=== PATIENT | male | born 1950 | race Caucasian/White ===

== ENCOUNTER 2016-11-09 09:14 | Day surgery (SDC) | payer MEDICARE, BC ==
--- NOTE | ~2016-11-09 | EGD ---
EGD REPORT [facility] [address] [place] [address] NAME: WAQAS DIETZ : [birth year] STATUS : REG [facility]#: [id number] AGE: 66 ADM/REG DATE : 11/09/16 MR#: [id number] REPORT SERV DATE: 11/09/16 DICTATED BY: MARGE MELENDEZ DATE: 11/09/16 REPORT STATUS : Draft [facility]ANS[facility]IB[facility] BY: [facility] DATE: 11/09/16 [facility] Patient Name: Waqas Dietz Date of : 1950 Attending MD: MARGE MELENDEZ MD Procedure Date No Time: 11/09/2016 Procedure: Colonoscopy Indications: High risk colon cancer surveillance: Personal history of colonic polyps Referring MD: CRISTI ESTRADA Medicines: Monitored Anesthesia Care Complications: No immediate complications. Procedure: Pre-Anesthesia Assessment: - ASA Grade Assessment: III - A patient with severe systemic disease. After I obtained informed consent, the scope was passed under direct vision. Throughout the procedure, the patient's blood pressure, pulse, and oxygen saturations were monitored continuously. The CF [id number] was introduced through the anus and advanced to the terminal ileum, with identification of the appendiceal orifice and IC valve. The colonoscopy was performed with moderate difficulty due to significant looping. Successful completion of the procedure was aided by applying abdominal pressure. The patient tolerated the procedure well. The quality of the bowel preparation was good. Findings: The digital rectal exam was normal. Pertinent negatives include no palpable rectal lesions. The terminal ileum appeared normal. A few diverticula were found in the sigmoid colon. A sessile polyp was found in the cecum. The polyp was 5 mm in size. The polyp was removed with a cold biopsy forceps. Resection and retrieval were complete. Hemorrhoids were found during retroflexion and were mild. Impression: - The examined portion of the ileum was normal. - Diverticulosis in the sigmoid colon. - One 5 mm polyp in the cecum. Resected and retrieved. - Hemorrhoids. Recommendation: - Patient has a contact number available for emergencies. The signs and symptoms of potential delayed EGD REPORT [address] [place]. [address] NAME: WAQAS DIETZ : [birth year] STATUS : REG [facility] PAT#: [id number] AGE: 66 ADM/REG DATE : 11/09/16 MR#: [id number] REPORT SERV DATE: 11/09/16 DICTATED BY: MARGE MELENDEZ DATE: 11/09/16 REPORT STATUS : Draft TRANSCRIBED BY: [employer] DATE: 11/09/16 complications were discussed with the patient. Return to normal activities tomorrow. Written discharge instructions were provided to the patient. - Regular diet. - Continue present medications. - Resume Coumadin (warfarin) today and Lovenox (enoxaparin) today at prior doses. - Repeat colonoscopy in 5 years for surveillance. We will need to check PT/INR in 3 days. Procedure Code(s): --- Professional --- 20430, Colonoscopy, flexible, proximal to splenic flexure; with biopsy, single or multiple Diagnosis Code(s): --- Professional --- K64.9, Unspecified hemorrhoids K57.30, Diverticulosis of large intestine without perforation or abscess without bleeding D12.0, Benign neoplasm of cecum Z86.010, Personal history of colonic polyps CPT copyright 2013 [employer]. All rights reserved. The codes documented in this report are preliminary and upon men's garment fitter review may be revised to meet current compliance requirements. MARGE MELENDEZ MD 11/09/2016 11:12 AM This report has been signed electronically. Number of Addenda: 0 Note Initiated On: 11/09/2016 10:35 AM Scope Withdrawal Time 0 hours 11 minutes 6 seconds [id number] [id number]
[~2016-11-09 09:14] MED LIST: BENICAR20 PO; BIOTIN PO; COQ-10200 MG OR; CRESTOR20 MG PO; FENOGLIDE120 MG PO; FISH OIL1200 MG PO; FISH-EPA1000 MG PO; JANTOVEN1 MG PO; JANTOVEN2 MG PO; JANTOVEN3 MG PO; LOVENOX; LOVENOX SC; MOTRIN IB200 MG PO; Multivit/Min Tab PO; PRAVACHOL40 MG PO; SULAR8.5 MG PO; TRICOR PO; ULORIC40 MG PO
[2017-02-23] MEDS ORDERED: ULORIC40 MG PO (15:17)
[2017-02-23] MEDS ORDERED: JANTOVEN2 MG PO (15:17)
[2017-02-23] MEDS ORDERED: TRILIPIX45 MG PO (15:17)
[2017-02-23] MEDS ORDERED: FISH-EPA1000 MG PO (15:18)
[2017-02-23] MEDS ORDERED: HAIR,SKIN,NAILS VIT PO (15:18)
[2017-02-23] MEDS ORDERED: PRAVACHOL40 MG PO (15:18)
[2017-02-23] MEDS ORDERED: BENICAR20 PO (15:18)
[2017-02-23] MEDS ORDERED: MULTIVIT/MIN PO (15:18)
[2017-02-23] MEDS ORDERED: CO Q-10200 MG PO (15:19)
[2017-02-23] MEDS ORDERED: TUMS E-X750 M2 PO (15:19)
[2017-02-23] MEDS ORDERED: NEOSPORIN OINT15 GM TOP (15:20)
[2017-02-23] MEDS ORDERED: EMETROL PO (15:20)
[2017-03-02] MEDS ORDERED: ZOFRAN4 PO (12:52)
[2017-03-02] MEDS ORDERED: PCET PO (12:52)
[2017-03-02] MEDS ORDERED: K500 PO (12:53)
== END 2016-11-09 23:59 | disposition home health service (06) ==
LOC: DMU 09:14
PROVIDERS: Internal Medicine Gastroenterology
PROC: 0DBH8ZX Excision of Cecum, Via Natural or Artificial Opening Endoscopic, Diagnostic (ICD-10-PCS; principal; 2016-11-09 11:00)
DX: Z12.11 Encounter for screening for malignant neoplasm of colon (principal); D12.0 Benign neoplasm of cecum; K57.30 Diverticulosis of large intestine without perforation or abscess without bleeding; K64.9 Unspecified hemorrhoids; I10 Essential (primary) hypertension; E78.00 Pure hypercholesterolemia, unspecified; M19.90 Unspecified osteoarthritis, unspecified site; Z85.46 Personal history of malignant neoplasm of prostate; Z86.718 Personal history of other venous thrombosis and embolism; Z86.010 Personal history of colon polyps; Z88.2 Allergy status to sulfonamides; Z79.01 Long term (current) use of anticoagulants; Z79.899 Other long term (current) drug therapy; Z87.891 Personal history of nicotine dependence; Z98.890 Other specified postprocedural states
CPT/HCPCS: 88305